=== PATIENT | male | born 1965 | race Caucasian/White ===

== ENCOUNTER → 2024-06-21 | Outpatient (CLI) | payer BC, SELFPAY ==
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
== END | disposition home or self-care (01) ==
PROVIDERS: PCP Specialist; Referring Provider Specialist; Visit Provider Specialist
DX: S22.42XA Multiple fractures of ribs, left side, initial encounter for closed fracture (principal); S29.9XXA Unspecified injury of thorax, initial encounter; V89.2XXA Person injured in unspecified motor-vehicle accident, traffic, initial encounter
CPT/HCPCS: 71101; 71120

== ENCOUNTER → 2024-07-18 | Outpatient (CLI) | payer BC, SELFPAY ==
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
== END | disposition home or self-care (01) ==
LOC: CCTX 08:42
PROVIDERS: PCP Specialist; Referring Provider Specialist; Visit Provider Specialist
DX: S22.20XA Unspecified fracture of sternum, initial encounter for closed fracture (principal); S22.42XA Multiple fractures of ribs, left side, initial encounter for closed fracture; V89.2XXA Person injured in unspecified motor-vehicle accident, traffic, initial encounter
CPT/HCPCS: 71250

== ENCOUNTER → 2024-08-23 | Outpatient (CLI) | payer BC, SELFPAY ==
[2024-08-23 10:23] LABS: Basophils # (Auto) 0.1 Thou/mm3 (0.0-0.2); Basophils % (Auto) 1 % (0-2.5); Eosinophils # (Auto) 0.3 Thou/mm3 (0.0-0.5); Eosinophils % (Auto) 3 % (0-10); Hematocrit 45.2 % (41.0-53.0); Hemoglobin 15.1 g/dL (13.5-16.0); Immature Granulocytes % (Auto) 0 % (0-0); Immature Granulocytes Auto 0.03 Thou/mm3 (0.00-0.00); Lymphocytes # (Auto) 2.5 Thou/mm3 (1.0-4.8); Lymphocytes % (Auto) 26 % (10-50); Mean Corpuscular HGB Conc 33.4 g/dl (31.0-37.0); Mean Corpuscular Hemoglobin 31.3 pg (25.0-35.0); Mean Corpuscular Volume 94 fL (80-100); Monocytes # (Auto) 1.1 Thou/mm3 (0.0-0.8); Monocytes % (Auto) 12 % (0-12); Neutrophils # (Auto) 5.6 Thou/mm3 (1.8-7.7); Neutrophils % (Auto) 59 % (37-80); Nucleated Red Blood Cell % 0 /100 WBC (0); Platelet Count 363 Thou/mm3 (140-440); Red Blood Count 4.82 Miln/mm3 (4.50-5.90); White Blood Count 9.5 Thou/mm3 (3.8-10.6)
[2024-08-23 10:35] LABS: Alanine Aminotransferase 18 U/L (10-49); Albumin, Serum 4.4 gm/dL (3.5-5.0); Albumin/Globulin Ratio 2.2 (1.2-2.2); Alkaline Phosphatase 100 U/L (46-116); Anion Gap 9 (7-16); Aspartate Amino Transferase 19 U/L (0-34); BUN/Creatinine Ratio 11 Ratio (12-20); Bilirubin,Total 0.4 mg/dL (0.3-1.2); Blood Urea Nitrogen 13 mg/dL (9-23); Calcium 9.1 mg/dL (8.3-10.6); Calcium (Corrected) 9.1 mg/dL (8.5-10.1); Carbon Dioxide 29.8 mMol/L (20.0-31.0); Cardiac Risk Estimate 7.7 RATIO (4.0-6.7); Chloride 106 mMol/L (98-107); Cholesterol 200 mg/dL (132-200); Creatinine (Component) 1.2 mg/dL (0.6-1.3); Glucose 72 mg/dL (74-106); HDL Cholesterol 26 mg/dL (40-60); LDL Cholesterol,Calculated 100 mg/dL (0-130); Osmolality,Calculated 287 (275-295); Potassium 4.2 mMol/L (3.4-5.1); Sodium 145 mMol/L (136-145); Total Protein 6.4 gm/dL (5.7-8.2); Triglycerides 370 mg/dL (30-150); eGFR > 60 See Note
[2024-08-23 10:37] LABS: Parathyroid Hormone Intact 119.6 pg/ml (18.5-88.0)
[2024-08-23 10:46] LABS: Ferritin 146 ng/mL (10.5-307.3); Iron 91 mcg/dL (65-175); Total Iron Binding Capacity 301 mcg/dL (250-425)
[2024-08-23 10:50] LABS: Folate > 24.00 ng/mL (>5.38); Vitamin B12 > 2000 pg/mL (211-911); Vitamin D 25 Hydroxy Total 47.1 ng/mL (7.3-40.2)
== END | disposition home or self-care (01) ==
LOC: COPL 09:17
PROVIDERS: PCP Specialist; Referring Provider Specialist; Visit Provider Specialist
DX: Z98.84 Bariatric surgery status (principal)
CPT/HCPCS: 36415; 80053; 80061; 82306; 82607; 82728; 82746; 83540; 83550; 83970; 85025

== ENCOUNTER → 2024-11-29 | Outpatient (CLI) | payer BC, SELFPAY ==
--- NOTE | 2024-11-29 14:00 | XR_ITS ---
Examination: Abdomen sonogram, Limited Date and time of exam: November 29, 2024, 1354 hours INDICATIONS: Heartburn epigastric pain beginning 3 years ago. Technique: Real-time leigh scale transabdominal sonographic images of the upper abdomen obtained. Findings: Multiple gallstones Normal gallbladder wall 0.2 cm Common bile duct 0.4 cm Pancreatic head 3.2 cm Liver 15.2 cm lobular contour fatty infiltration no focal liver lesions Normal hepatopedal portal venous flow Patent IVC IMPRESSION: Cholelithiasis, negative for cholecystitis Primary hepatocellular disease, no focal liver lesions
[2024-11-29 15:49] LABS: Thyroid Stimulating Hormone 1.69 uIU/mL (0.55-4.78)
[2024-12-05 07:03] LABS: ANA Screen, IFA NEGATIVE (NEGATIVE)
== END | disposition home or self-care (01) ==
LOC: CDIM 13:37 → COPL 14:06
PROVIDERS: PCP Specialist; Referring Provider Specialist; Visit Provider Radiology Diagnostic Radiology
DX: K80.20 Calculus of gallbladder without cholecystitis without obstruction (principal); K76.9 Liver disease, unspecified; E78.9 Disorder of lipoprotein metabolism, unspecified
CPT/HCPCS: 36415; 76705; 84443; 86038

== ENCOUNTER 2024-12-20 10:00 | Day surgery (SDC) | payer BC, SELFPAY ==
[2024-12-19 11:33] VITALS: BMI 36.0
[2024-12-20] VITALS (11 sets, daily range): BP systolic 150–203; BP diastolic 75–115; PULSE 55–74; RESP 15–18; TEMP 36.5–36.6; O2SAT 97–99; BMI 37.0
[2024-12-20] MEDS: BENZOCAINE 20% (Hurricaine) SPRAY 1 DOSE TOP (11:49)
[2024-12-20] MEDS: SODIUM CHLORIDE 0.9% 500 ML 500 ML 20 ML IV (11:49)
[2024-12-20] MEDS: fentaNYL CIT INJ 50 mCg/ML AMP 2ML (ASD USE ONLY) IVP (11:52)
[2024-12-20] MEDS: MIDAZOLAM INJ 1 MG/ML VIAL 2 ML (ASD USE ONLY) 2 MG IVP (11:52)
[2024-12-20] MEDS: hydrALAZINE INJ 20 MG/ML VIAL 10 MG IVP ×2 (12:09→12:15)
== END 2024-12-20 12:35 | disposition home or self-care (01) ==
PROVIDERS: PCP Specialist; Referring Provider Specialist; Visit Provider Specialist
PROC: (CPT 43239; principal; 2024-12-20 10:30)
DX: K22.2 Esophageal obstruction (principal); K20.90 Esophagitis, unspecified without bleeding; Z98.0 Intestinal bypass and anastomosis status; K29.50 Unspecified chronic gastritis without bleeding
CPT/HCPCS: 43248; 43239; A4649; C1769; J0360; J1200; J2250; J3010; J7999; A9270